=== PATIENT | female | born 1965 | race Caucasian/White ===

== ENCOUNTER 2022-10-18 00:43 | Inpatient (IN) | payer MEDICAID ==
[~2022-10-18] VITALS: Ht 152.4 cm; Wt 52.2 kg
[2022-10-18] VITALS (23 sets, daily range): BP systolic 143–207; BP diastolic 69–96; PULSE 60–81; RESP 14–22; TEMP 97.2–98.5; O2SAT 99
[2022-10-18] MEDS ORDERED: NITROGLYCERIN OINT 1GM/INCH UDPKT TD ONE (01:00)
[2022-10-18] MEDS ORDERED: FUROSEMIDE 40MG/4ML VIAL IV ONE (01:00)
[2022-10-18 01:54] LABS: BASOPHILS % 1.8 % (0.0-2.0); EOSINOPHILS % 5.4 % (0.0-5.0); HEMOGLOBIN. 10.2 g/dL (12.0-16.0); LYMPHOCYTES % 8.7 % (20.0-50.0); MEAN CORPUSCULAR HEMOGLOBIN 30.5 pg (28.0-32.0); MEAN CORPUSCULAR VOLUME 92.7 fL (81.0-99.0); MEAN PLATELET VOLUME 7.3 fl (7.4-10.4); MONOCYTES % 6.9 % (2.0-8.0); NEUTROPHILS % 77.2 % (40.0-76.0); PLATELET 367 x1000/uL (130-400); RED BLOOD CELL COUNT 3.34 mill/uL (4.2-5.4); RED CELL DISTRIBUTION WIDTH 16.7 % (11.6-14.6)
[2022-10-18] MEDS ORDERED: HYDRALAZINE 20MG/ML VIAL IV ONE (02:00)
[2022-10-18 02:03] LABS: CHLORIDE 96 mEq/L (98-107)
[2022-10-18 02:18] LABS: BG BASE EXCESS -2.1 mmol/L (-2.0-2.0); BG DEOXYHEMOGLOBIN 0.4 % (0.0-5.0); BG FRACTION INSPIRED OXYGEN 70; BG HCO3 ACT 24.7 mmol/L (22.0-26.0); BG METHEMOGLOBIN 0.5 % (0.0-1.5); BG OXYGEN SATURATION 99.6 % (92.0-98.5); BG OXYHEMOGLOBIN 98.1 % (94.0-97.0); BG PCO2 49.4 mmHg (35.0-45.0); BG PH 7.316 (7.350-7.450); BG PO2 295.5 mmHg (75.0-100.0); BG SAMPLE SITE RIGHT RADIAL; BG TOTAL HEMOGLOBIN 15.6 g/dL (12.0-18.0); BG VENT MODE MASK - BIPAP
[2022-10-18] MEDS ORDERED: GUAIFENESIN 200MG/10ML SUGAR FREE UDC PO PRN (04:30)
[2022-10-18] MEDS ORDERED: ONDANSETRON HCL 4MG/2ML INJ IV PRN (04:30)
[2022-10-18] MEDS ORDERED: DEXTROSE 50% WATER 50ML SYRINGE IV PRN (04:30)
[2022-10-18] MEDS ORDERED: IPRATROPIUM/ALBUTEROL 0.5-3(2.5)MG/3ML NEB HHN PRN (04:30)
[2022-10-18] MEDS ORDERED: ACETAMINOPHEN 325MG TABLET PO PRN ×2 (04:30)
[2022-10-18] MEDS ORDERED: MAGNESIUM/ALUMINUM HYDROXIDE/SIMETHICONE 30ML UDC PO PRN (04:30)
[2022-10-18] MEDS ORDERED: DOCUSATE SODIUM 100MG CAPSULE PO PRN (04:30)
[2022-10-18] MEDS ORDERED: NITROGLYCERIN 0.4MG TABLET SL SL PRN (05:15)
[2022-10-18 05:43] LABS: CREATINE KINASE MB FRACTION 4.4 ng/mL (0.5-3.6)
[2022-10-18 05:51] LABS: T4 FREE 0.94 ng/dL (0.76-1.46)
[2022-10-18 06:56] LABS: PHOSPHORUS 9.1 mg/dL (2.5-4.9)
[2022-10-18 07:18] LABS: FOLIC ACID (FOLATE) SERUM >20 ng/mL ng/mL (>5.38); VITAMIN B12 SERUM >2000 pg/mL pg/mL (211-911)
[2022-10-18] MEDS: INSULIN LISPRO 100 UNITS/ML SUBCUT SCH ×4 (08:20→22:22)
[2022-10-18 08:36] LABS: BG BASE EXCESS -5.8 mmol/L (-2.0-2.0); BG CARBOXYHEMOGLOBIN 0.3 % (0.5-1.5); BG DEOXYHEMOGLOBIN 0.5 % (0.0-5.0); BG FRACTION INSPIRED OXYGEN 70; BG METHEMOGLOBIN 0.3 % (0.0-1.5); BG OXYGEN SATURATION 99.5 % (92.0-98.5); BG OXYHEMOGLOBIN 98.9 % (94.0-97.0); BG PCO2 34.8 mmHg (35.0-45.0); BG PH 7.356 (7.350-7.450); BG PO2 277.7 mmHg (75.0-100.0); BG SAMPLE SITE RIGHT RADIAL; BG TOTAL HEMOGLOBIN 9.4 g/dL (12.0-18.0); BG VENT MODE MASK - BIPAP
[2022-10-18] MEDS: BLOOD SUGAR DIAGNOSTIC STRIP TEST SCH ×4 (09:00→21:00)
[2022-10-18] MEDS ORDERED: ASPIRIN 81MG EC TABLET PO SCH (09:00)
[2022-10-18] MEDS: FAMOTIDINE 20MG/2ML VIAL IV SCH (11:05)
[2022-10-18] MEDS: AMLODIPINE 10MG TABLET PO SCH (11:06)
[2022-10-18] MEDS: DIPHENHYDRAMINE 50MG/ML VIAL IV PRN ×2 (12:08→21:50)
[2022-10-18] MEDS: CLONIDINE 0.1MG TABLET PO PRN ×2 (12:08→21:51)
[2022-10-18 14:19] LABS: FERRITIN 590 ng/mL (10-291)
[2022-10-18 15:21] LABS: CREATINE KINASE MB FRACTION 5.1 ng/mL (0.5-3.6)
[2022-10-18 16:39] LABS: HEPATITIS B SURFACE ANTIGEN NEGATIVE
[2022-10-18] MEDS: IPRATROPIUM/ALBUTEROL 0.5-3(2.5)MG/3ML NEB HHN SCH (21:06)
[2022-10-18] MEDS: ENOXAPARIN 30MG/0.3ML SYR SUBCUT SCH (21:09)
[2022-10-19] VITALS (16 sets, daily range): BP systolic 113–176; BP diastolic 55–85; PULSE 74–81; RESP 18–24; TEMP 97.5–98.6; O2SAT 98–99
[2022-10-19] MEDS: IPRATROPIUM/ALBUTEROL 0.5-3(2.5)MG/3ML NEB HHN SCH ×4 (01:08→21:08)
[2022-10-19 06:42] LABS: HEMOGLOBIN. 9.3 g/dL (12.0-16.0); MEAN CORPUSCULAR HEMOGLOBIN 30.6 pg (28.0-32.0); MEAN CORPUSCULAR VOLUME 92.4 fL (81.0-99.0); MEAN PLATELET VOLUME 7.4 fl (7.4-10.4); PLATELET 306 x1000/uL (130-400); RED BLOOD CELL COUNT 3.03 mill/uL (4.2-5.4); RED CELL DISTRIBUTION WIDTH 16.6 % (11.6-14.6)
[2022-10-19] MEDS: BLOOD SUGAR DIAGNOSTIC STRIP TEST SCH ×4 (07:30→21:00)
[2022-10-19 08:00] LABS: CHLORIDE 102 mEq/L (98-107)
[2022-10-19] MEDS: INSULIN LISPRO 100 UNITS/ML SUBCUT SCH ×4 (08:00→21:45)
[2022-10-19] MEDS: FAMOTIDINE 20MG/2ML VIAL IV SCH (08:46)
[2022-10-19] MEDS: FOLIC ACID/VITAMIN B COMP W-C TABLET PO SCH (08:46)
[2022-10-19] MEDS: DIPHENHYDRAMINE 50MG/ML VIAL IV PRN ×2 (08:46→15:03)
[2022-10-19] MEDS: AMLODIPINE 10MG TABLET PO SCH (08:46)
[2022-10-19] MEDS: HYDRALAZINE HCL 10MG TABLET PO SCH ×2 (14:59→21:40)
[2022-10-19 19:09] LABS: PLATELET ESTIMATE NORMAL
[2022-10-19] MEDS: ENOXAPARIN 30MG/0.3ML SYR SUBCUT SCH (21:46)
[2022-10-20] VITALS (24 sets, daily range): BP systolic 113–177; BP diastolic 58–88; PULSE 69–91; RESP 12–22; TEMP 97.8–98.4; O2SAT 96–99
[2022-10-20] MEDS: IPRATROPIUM/ALBUTEROL 0.5-3(2.5)MG/3ML NEB HHN SCH ×4 (01:54→21:44)
[2022-10-20] MEDS: HYDRALAZINE HCL 10MG TABLET PO SCH (05:19)
[2022-10-20] MEDS: CLONIDINE 0.1MG TABLET PO PRN ×2 (06:11→09:09)
[2022-10-20] MEDS: BLOOD SUGAR DIAGNOSTIC STRIP TEST SCH ×4 (07:30→21:00)
[2022-10-20] MEDS: FOLIC ACID/VITAMIN B COMP W-C TABLET PO SCH (09:09)
[2022-10-20] MEDS: AMLODIPINE 10MG TABLET PO SCH (09:09)
[2022-10-20] MEDS: FAMOTIDINE 20MG/2ML VIAL IV SCH (09:09)
[2022-10-20] MEDS: INSULIN LISPRO 100 UNITS/ML SUBCUT SCH ×4 (12:33→21:00)
[2022-10-20] MEDS: HYDRALAZINE HCL 50MG TABLET PO SCH ×2 (14:00→22:13)
[2022-10-20] MEDS ORDERED: HYDRALAZINE HCL 10MG TABLET PO SCH (14:00)
[2022-10-20] MEDS: DIPHENHYDRAMINE 50MG/ML VIAL IV PRN (18:08)
[2022-10-20] MEDS: DOXAZOSIN MESYLATE 4MG TABLET PO SCH (20:28)
[2022-10-20] MEDS: ENOXAPARIN 30MG/0.3ML SYR SUBCUT SCH (20:28)
[2022-10-21] VITALS (9 sets, daily range): BP systolic 122–154; BP diastolic 47–94; PULSE 68–78; RESP 6–27; TEMP 97.4–98.5; O2SAT 95–96
[2022-10-21] MEDS: HYDRALAZINE HCL 50MG TABLET PO SCH ×3 (05:54→22:13)
[2022-10-21] MEDS: DIPHENHYDRAMINE 50MG/ML VIAL IV PRN (06:01)
[2022-10-21 07:25] LABS: HEMATOCRIT 29.4 % (36.0-48.0); MEAN CORPUSCULAR VOLUME 91.7 fL (81.0-99.0); PLATELET 324 x1000/uL (130-400); RED BLOOD CELL COUNT 3.21 mill/uL (4.2-5.4); RED CELL DISTRIBUTION WIDTH 16.1 % (11.6-14.6)
[2022-10-21] MEDS: BLOOD SUGAR DIAGNOSTIC STRIP TEST SCH ×4 (07:30→21:00)
[2022-10-21] MEDS: IPRATROPIUM/ALBUTEROL 0.5-3(2.5)MG/3ML NEB HHN SCH ×3 (07:48→20:53)
[2022-10-21] MEDS: INSULIN LISPRO 100 UNITS/ML SUBCUT SCH ×4 (08:00→21:00)
[2022-10-21 09:40] LABS: PHOSPHORUS 6.8 mg/dL (2.5-4.9)
[2022-10-21] MEDS: AMLODIPINE 10MG TABLET PO SCH (10:07)
[2022-10-21] MEDS: FOLIC ACID/VITAMIN B COMP W-C TABLET PO SCH (10:07)
[2022-10-21] MEDS: DOXAZOSIN MESYLATE 4MG TABLET PO SCH (22:14)
[2022-10-21] MEDS: ENOXAPARIN 30MG/0.3ML SYR SUBCUT SCH (22:14)
[2022-10-22] VITALS (17 sets, daily range): BP systolic 97–140; BP diastolic 44–91; PULSE 71–182; RESP 14–18; TEMP 97.7–98.7; O2SAT 97–100
[2022-10-22] MEDS: IPRATROPIUM/ALBUTEROL 0.5-3(2.5)MG/3ML NEB HHN SCH ×3 (01:50→13:52)
[2022-10-22] MEDS: HYDRALAZINE HCL 50MG TABLET PO SCH ×2 (07:01→13:30)
[2022-10-22] MEDS: BLOOD SUGAR DIAGNOSTIC STRIP TEST SCH ×2 (07:30→12:23)
[2022-10-22 07:56] LABS: BASOPHILS % 1.4 % (0.0-2.0); HEMATOCRIT. 26.9 % (36.0-48.0); HEMOGLOBIN. 9.1 g/dL (12.0-16.0); MEAN CORPUSCULAR HEMOGLOBIN 30.8 pg (28.0-32.0); MEAN CORPUSCULAR VOLUME 91.5 fL (81.0-99.0); MEAN PLATELET VOLUME 7.2 fl (7.4-10.4); MONOCYTES % 8.8 % (2.0-8.0); NEUTROPHILS % 72.8 % (40.0-76.0); PLATELET 309 x1000/uL (130-400); RED BLOOD CELL COUNT 2.94 mill/uL (4.2-5.4); RED CELL DISTRIBUTION WIDTH 15.9 % (11.6-14.6)
[2022-10-22] MEDS: INSULIN LISPRO 100 UNITS/ML SUBCUT SCH ×2 (08:00→13:33)
[2022-10-22 08:16] LABS: CHLORIDE 100 mEq/L (98-107)
[2022-10-22 08:56] LABS: PHOSPHORUS 8.8 mg/dL (2.5-4.9)
[2022-10-22] MEDS ORDERED: FAMOTIDINE 20MG/2ML VIAL IV SCH (09:00)
[2022-10-22] MEDS: AMLODIPINE 10MG TABLET PO SCH (09:00)
[2022-10-22] MEDS: FOLIC ACID/VITAMIN B COMP W-C TABLET PO SCH (09:30)
[2022-10-22] MEDS: DIPHENHYDRAMINE 50MG/ML VIAL IV PRN (12:23)
== END 2022-10-22 20:29 | disposition home or self-care (01) | DRG 194 ==
LOC: ER 00:43 → 5EST 04:05
PROVIDERS: ADMIT Internal Medicine; ATTEND Internal Medicine
PROC: 5A1D70Z Performance of Urinary Filtration, Intermittent, Less than 6 Hours Per Day (ICD-10-PCS; 2022-10-18)
PROC: 5A09357 Assistance with Respiratory Ventilation, Less than 24 Consecutive Hours, Continuous Positive Airway Pressure (ICD-10-PCS; 2022-10-18)
PROC: 5A1D70Z Performance of Urinary Filtration, Intermittent, Less than 6 Hours Per Day (ICD-10-PCS; 2022-10-20)
PROC: 0W993ZZ Drainage of Right Pleural Cavity, Percutaneous Approach (ICD-10-PCS; principal; 2022-10-21)
PROC: 5A1D70Z Performance of Urinary Filtration, Intermittent, Less than 6 Hours Per Day (ICD-10-PCS; 2022-10-22)
DX: I13.2 Hypertensive heart and chronic kidney disease with heart failure and with stage 5 chronic kidney disease, or end stage renal disease (principal); K76.7 Hepatorenal syndrome; J96.01 Acute respiratory failure with hypoxia; J96.02 Acute respiratory failure with hypercapnia; E44.1 Mild protein-calorie malnutrition; E87.1 Hypo-osmolality and hyponatremia; D63.8 Anemia in other chronic diseases classified elsewhere; E87.20 Acidosis, unspecified; J91.8 Pleural effusion in other conditions classified elsewhere; I50.31 Acute diastolic (congestive) heart failure; I21.A1 Myocardial infarction type 2; E11.65 Type 2 diabetes mellitus with hyperglycemia; N18.6 End stage renal disease; R74.01 Elevation of levels of liver transaminase levels; E87.5 Hyperkalemia; Z91.158 Patient's noncompliance with renal dialysis for other reason; Z99.2 Dependence on renal dialysis; Z82.49 Family history of ischemic heart disease and other diseases of the circulatory system; Z68.22 Body mass index [BMI] 22.0-22.9, adult
CPT/HCPCS: 32555; 36415; 36600; 71045; 76604; 80048; 80053; 80061; 80076; 82140; 82375; 82550; 82553; 82607; 82728; 82746; 82805; 82962; 83036; 83540; 83615; 83735; 83880; 83970; 83986; 84100; 84439; 84443; 84484; 85025; 85027; 86705; 86709; 86803; 87340; 88108; 90935; 93005; 93306; 93970; 94640; 94660; 97162; 99291; J0360; J1200; J1650; J1815; J1940; J3490